=== PATIENT | female | born 1965 | race Caucasian/White ===

== ENCOUNTER → 2017-11-03 17:17 | Outpatient (CLI) | payer BC | END | disposition home or self-care (01) | LOC: D.MAMMO 13:15 | DX: Z12.31 Encounter for screening mammogram for malignant neoplasm of breast (principal) ==

== ENCOUNTER 2019-03-16 10:00 | Outpatient (CLI) | payer BC | END 2019-03-16 10:30 | disposition home or self-care (01) | LOC: D.MAMMO 10:00 | PROVIDERS: ATTEND Internal Medicine | DX: Z12.31 Encounter for screening mammogram for malignant neoplasm of breast (principal) ==

== ENCOUNTER → 2020-04-11 07:24 | Outpatient (CLI) | payer BC | END | disposition home or self-care (01) | LOC: D.CT 04-04 08:00 | PROVIDERS: ATTEND Obstetrics & Gynecology | DX: R10.2 Pelvic and perineal pain (principal) ==

== ENCOUNTER 2020-04-26 05:15 | Day surgery (SDC) | payer BC ==
[2020-04-24 17:30] LABS: BASOPHILS 0.6 % (0-2); EOSINOPHILS 1.2 % (0-7); HEMATOCRIT 42.9 % (36.0-48.0); HEMOGLOBIN 13.9 g/dL (12-16); IMMATURE GRANULOCYTES 0.1 % (0-5); MCHC 32.4 g/dL (31.0-37.0); MCV 89.4 fL (80.0-100.0); MEAN PLATELET VOLUME 10.4 fL (7.4-10.4); MONOCYTES 7.1 % (2-11); PLATELET COUNT 264 10x3/uL (130-400); RDW 12.9 % (11.5-14.5); WBC 8.1 10x3/uL (4.8-10.8)
[2020-04-24 17:43] LABS: ANION GAP 12.3 mmol/L (8-16); CALCIUM 9.3 mg/dL (8.5-10.1); CARBON DIOXIDE 28.1 mmol/L (21.0-32.0); CREATININE - SERUM 0.9 mg/dL (0.6-1.3); POTASSIUM - SERUM 4.4 mmol/L (3.5-5.1)
[2020-04-26] VITALS (16 sets, daily range): BP systolic 83–107; BP diastolic 50–63; Ht 177.8 cm; Wt 67.1 kg
[~2020-04-26] VITALS: Ht 177.8 cm; Wt 67.1 kg
--- NOTE | ~2020-04-26 | OP ---
PATIENT NAME: DOREEN LYNN MEDICAL RECORD: [id number] :69 LOCATION:[facility] .[id number] ADMISSION DATE: SURGEON: JAXSON BALTAZAR MD DATE OF OPERATION: 04/26/2020 PREOPERATIVE DIAGNOSES: 1. Abnormal uterine bleeding. 2. Perimenopause. POSTOPERATIVE DIAGNOSES: 1. Abnormal uterine bleeding. 2. Perimenopause. PROCEDURE: Total laparoscopic hysterectomy with bilateral salpingo-oophorectomy and cystoscopy. SURGEON: Jaxson Baltazar MD STILL PHOTOGRAPHER: Mikael Jeff 2Corinne Garrison FULFILLMENT MAIL CLERK: Ramona Ramey ANESTHESIOLOGIST: Dr. Anderson ANESTHESIA: General. FINDINGS: Uterus, tubes, and ovaries were unremarkable. Vaginal mucosa is unremarkable. At the time of cystoscopy, the ureteral orifices were visualized with good efflux of urine. No evidence of trauma, unremarkable mucosa. SPECIMEN REMOVED: Uterus, tubes, and ovaries bilaterally. SPECIMEN DISPOSITION: All specimens to pathology. ESTIMATED BLOOD LOSS: Less than or equal to 75 cc. FLUIDS: 1800 cc of lactated Ringer's. URINE OUTPUT: 150 cc of clear urine. COMPLICATIONS: None. DRAIN: Alberts to gravity. INDICATIONS: The patient is a 54-year-old perimenopausal female with irregular bleeding. The patient has been counseled buy is extremely concerned of family history of ovarian and uterine cancers. The patient is consented for diagnostic laparoscopy and total laparoscopic hysterectomy with bilateral salpingo-oophorectomy and any indicated procedures. DESCRIPTION OF PROCEDURE: After informed consent was assured, the patient was taken to the operating room where anesthetic was obtained. The patient was now prepped and draped in the usual sterile fashion after being placed in [facility] OPERATIVE REPORT [id number] DOREEN LYNN [facility]. The speculum was introduced in the vagina and uterine manipulator placed. Trocars were inserted at the umbilical incision site and pneumoperitoneum was developed. Accessory ports were placed in the right and left lower quadrants. Both of these were 5-mm ports. The pelvis view with the above findings. Dissection of adnexa begins on the right. The right tube and ovary were elevated and the infundibulopelvic ligaments were compressed, coagulated, and . The dissection was carried out underneath the left ovary. Anterior leaf of the broad ligament was opened and the bladder flap was developed. The posterior leaf was opened. The vessels on the left side were skeletonized, compressed and coagulated at the level of the internal os. Attention was now directed to the left side. Left ovary and tube was elevated. Thunderbeat coagulation cutter was used to compress, coagulate, and separate the infundibulopelvic ligament. Dissection again was carried out underneath the ovary and left tube. Dissection was carried down the broad ligament and the vessels of the left side were compressed, coagulated, and . The bladder flap was further developed. To further delineate the margins of the bladder, sterile milk and normal saline mixture was placed. The bladder was distended and full margin was identified. The bladder flap was now further developed and dissection of the uterus from the vagina begins. Starting at the 9 o'clock concluding at the 3 and completing from the 3 to the 9 going clockwise, the cervix is removed from its attachments to the vagina. The uterus was now pulled into the vagina maintaining pneumoperitoneum. Pelvis was irrigated, irrigant removed. Attention was now directed to the vagina and the distention gas is turned off and the light is on standby. With the legs properly positioned, a weighted speculum was introduced and the specimen has been removed. The defect created by the hysterectomy was identified. Allis clamps were used to grab the uterosacral ligaments on the right and left sides. The cuff was now closed in an anterior and posterior fashion taking care to plicate the uterosacral ligaments and developing support for the apex. After closure was completed, cystoscopy was performed with the above findings. Pneumoperitoneum was reestablished and the pelvis again viewed. Sagar was placed over the vaginal cuff. Sponge, lap, and needle counts correct times 2. The pneumoperitoneum was released and accessory trocars were removed. All sites were closed with a subcuticular stitch. Alberts catheter was restarted. The patient was sent to the recovery area in stable condition. TRANSINT:[id number] Voice Confirmation ID: [id number] DOCUMENT ID: [id number] JAXSON BALTAZAR MD CC: [id number] DICTATION DATE: 04/26/201750 CMA OR LPN: 04/27/20 0356 [facility] [address] [place] [address]
[~2020-04-26 05:15] MED LIST: ALEVE PM PO; GLUCOPHAGE500 MG PO; METOPROLOL TART25 MG PO; [UNRECOGNIZED DRUG - OTHER] PO
[2020-04-26 06:34] LABS: HCG URINE NEGATIVE (NEGATIVE)
--- NOTE | 2020-04-26 10:16 | NUR ---
OPA OUT AT THIS TIME
--- NOTE | 2020-04-26 10:37 | NUR ---
PT RECEIVED VIA BED FROM RECOVERY. VSS. SEE POST OP VITALS. PT FREQUENTLY DROUSY BUT AROUSES WITH VERBAL STIMULATION. PT DENIES PAIN. 3 LAP INCISIONS C/D/I WITH DERMABOND. NO VAG BLEEDING, PERIPAD IN PLACE. BURGESS CATH DRAINING, URINE TO BEDSIDE DRAINAGE. FORMULA IRRIGANT NOTED IN BAG CAUSING CLOUDY APPEARANCE. STAT LOCK IN PLACE, INNER RT THIGH. SCDS ON LE BILAT. NO EDEMA NOTED. SRUP X2. CALL LIGHT IN REACH. CONTINUOUS PULSE OX IN PLACE. DAUGHTER AT BEDSIDE.
--- NOTE | 2020-04-26 12:15 | NUR ---
PT C/O PAIN RATED 4/10, REQUESTING PAIN MED. DR BALTAZAR PHONED AND STATES HE WILL ENTER ORDERS.
--- NOTE | 2020-04-26 12:40 | NUR ---
THIS RN TO ROOM WITH BELKIS HARTMANN FOR ASSISTANT BRANCH MANAGER WITH ORDERED PO MEDS. PT POSITIONED TO SITTING UP IN BED WITH HOB APPROX 60 DEGREES. PT GIVEN SIP OF WATER, STATES "I CAN'T TAKE THOSE" REFERRING TO PO MEDS, C/O FEELING NAUSEOUS. PO MEDS HELD, WILL ADMIN PRN ZOFRAN AND GET ORDER FOR IV PAIN MED.
--- NOTE | 2020-04-26 12:47 | NUR ---
PT ADMIN ZOFRAN AND DILAUDID ORDERED IV, SEE EMAR FOR DOC. SRUx2, CL IN REACH. PT DAUGHTER AT BEDSIDE.
--- NOTE | 2020-04-26 14:00 | NUR ---
THIS RN TO ROOM FOR PT CHECK. PT RESTING WITH EYES CLOSED, RESP EVEN AND UNLABORED, ALERTS TO VOICE, DENIES PAIN. PT TURNED TO RIGHT TILT, SUPPORTED WITH PILLOW. PT REMAINS WITH HOB APPROX 60 DEGREES. SRUx2, CL IN REACH. VSS, SEE FLOWSHEET. 180ML CLEAR YELLOW URINE EMPTIED FROM UROMETER. PT DAUGHTER AT BEDSIDE.
--- NOTE | 2020-04-26 15:10 | NUR ---
OUTPUT 175 MLS CLEAR YELLOW URINE. PT WAKING UP REPOSITIONED TO [place] PER REQUEST TO DRINK WATER. DENIES NAUSEA WITH DRINKING. INCISIONS REMAIN DRY AND INTACT. SCANT SPOT BROWN BLOOD NOTED ON PERIPAD. NO ACTIVE BLEEDING NOTED. SRUPX2. CALL LIGHT IN REACH. DAUGHTER AT BEDSIDE.
--- NOTE | 2020-04-26 16:31 | NUR ---
DR BALTAZAR PHONES UNIT FOR UPDATE ON PT, STATES PT WILL LIKELY STAY OVERNIGHT AND HE WILL ROUND SHORTLY TO SEE HER.
--- NOTE | 2020-04-26 17:00 | NUR ---
PT DAUGHTER UPDATED ON ORDER FROM DR BALTAZAR THAT SHE WILL LIKELY STAY OVERNIGHT. PT RESTING WITH EYES CLOSED, RESP EVEN AND UNLABORED, VSS. PT LEFT UNDISTURBED FOR REST. SRUx2, CL IN REACH.
--- NOTE | 2020-04-26 18:55 | NUR ---
THIS RN TO ROOM FOR PT CHECK. PT SITTING UP IN BED, STILL FREQUENTLY DROWSY BUT ALERTS TO VOICE MORE EASILY AND CARRIES ON CONVERSATION. PT DAUGHTER REPORTS SHE WAS ABLE TO SIP SOME WATER AND EAT LITTLE SOUP. ABD INCISIONS REMAIN C/D/I. NO FURTHER VAGINAL BLEEDING NOTED TO PERIPAD. BURGESS CATH DRAINING CLEAR YELLOW URINE, APPROX 500ML EMPTIED. BURGESS BAG EMPTIED FOR END OF SHIFT. PT DENIES PAIN, STATES SHE WANTS TO REPOSITION. THIS RN AND PT DAUGHTER REPOSITION PT UP TO HOB AND HOB UP TO APPROX 45 DEGREES, REPOSITIONED TO LEFT TILT AND SUPPORTED WITH PILLOWS. PT DENIES NEEDS. IV INFUSING ORDERD. SRUx2, CL IN REACH.
--- NOTE | 2020-04-26 19:00 | NUR ---
REPORT TO PM SHIFT.
--- NOTE | 2020-04-26 19:47 | NUR ---
PATIENT LYING IN BED WITH EYES CLOSED. DAUGHTER AT BEDSIDE. PATIENT VERY DROWSY. WILL AROUSE AFTER NAME BEING CALLED AND GENTL TOUCHING SHOULDER. PATIENT ALERT TO PERSON AND PLACE, BUT WILL FALL ASLEEP WHILE TALKING. VITAL SIGNS DONE. ASSESSMENT COMPLETE. DENIES PAIN AT THIS TIME. 3 LAPROSCOPIC INCISIONS NOTED TO ABDOMEN. NO REDNESS OR EDEMA NOTED TO INCISION. BURGESS CATHETER INTACT AND DRAINING CLEAR YELLOW URINE TO GRAVITY. IV TO L WRIST INFUSING LR @ 150 ML/HR. BED IN LOWEST POSITION, SIDE RAILS UP X 2, C/L AND WATER WITHIN REACH.
--- NOTE | 2020-04-26 21:00 | NUR ---
PATIENT LYING QUIETLY IN BED WITH EYES CLOSED. VERY DROWSY. WILL RESPOND TO VERBAL STIMULI, BUT CONTINUES TO FALL ASLEEP WHILE TALKING. DAUGHTER AT BEDSIDE. PATIENT DENIES ANY PAIN OR NEEDS AT THIS TIME. BED IN LOWEST POSITION, SIDE RAILS UP X 2, C/L AND WATER WITHIN REACH.
--- NOTE | 2020-04-26 22:32 | NUR ---
PATIENT SITTING UP IN BED. STILL DROWSY, BUT SITTING UP AND TALKING. GRAHM CRACKERS AND ICE GIVEN PER PATIENT REQUEST. VITAL SIGNS DONE. PATIENT DENIES FURTHER NEEDS. DAUGHTER AT BEDSIDE. BED IN LOWEST POSITION, SIDE RAILS UP X 2, C/L AND WATER WITHIN REACH.
--- NOTE | 2020-04-27 00:03 | NUR ---
PATIENT SITTING UP IN BED. STATES PAIN 5 OUT OF 10. PATIENT TOLERATED GRAHM CRACKERS. DENIES FEELING NAUSEATED. DILAUDID 2MG ADMINISTERED PO. WILL CONTINUE TO MONITOR. DAUGHTER AT BEDSIDE. BED IN LOWEST POSITION, SIDE RAILS UP X 2, C/L AND WATER WITHIN REACH.
--- NOTE | 2020-04-27 01:00 | NUR ---
PATIENT LYING IN BED WITH EYES CLOSED. AROUSES TO VERBAL STIMULI. DENIES PAIN OR NEEDS AT THIS TIME. BED IN LOWEST POSITION, SIDE RAILS UP X 2, C/L AND WATER WITHIN REACH.
--- NOTE | 2020-04-27 01:52 | NUR ---
PATIENT LYING IN BED WITH EYES CLOSED. EASILY AROUSED. REGLAN 10 MG ADMINISTERED PO. PATIENT DENIES PAIN OR ANY NEEDS AT THIS TIME. BED IN LOWEST POSITION, SIDE RAILS UP X 2, C/L AND WATER WITHIN REACH.
[2020-04-27 02:43] VITALS: BP 98/53
--- NOTE | 2020-04-27 02:43 | NUR ---
PATIENT LYING IN BED WITH EYES CLOSED. EASILY AROUSED. DENIES PAIN AT THIS TIME. VITAL SIGNS DONE. BED IN LOWEST POSITION, SIDE RAILS UP X 2, C/L AND WATER WITHIN REACH.
--- NOTE | 2020-04-27 03:02 | NUR ---
PATIENT AMBULATING IN ROOM. DENIES PAIN OR NEEDS AT THIS TIME. VITAL SIGNS DONE. BED IN LOWEST POSITION, SIDE RAILS UP X 2, C/L AND WATER WITHIN REACH.
--- NOTE | 2020-04-27 04:08 | NUR ---
PATIENT SITTING UP IN BED. STATES PAIN 8 OUT OF 10. DILAUDID 2MG ADMINISTERED PO. MOTRIN 800MG ADMINISTERED PO. PATIENT DENIES ANY FURTHER NEEDS. BED IN LOWEST POSITION, SIDE RAILS UP X 2, C/L AND WATER WITHIN REACH.
--- NOTE | 2020-04-27 04:30 | NUR ---
PATIENT SITTING UP IN BED. EMPTIED 1300 ML'S OF CLEAR YELLOW URINE FROM CATHETER BAG. 16 FR BURGESS CATHETER REMOVED AFTER DEFLATING 10 CC'S OF STERILE WATER FROM BALLOON. BIRD CARE GIVEN AND PADS CHANGED. UNDERWEAR APPLIED. PATIENT TOLERATED WELL. SCD'S REMOVED AT THIS TIME PER REQUEST OF PATIENT. IV SALINE LOCKED. ICE CHIPS GIVEN TO PATIENT. PATIENT DENIES ANY FURTHER NEEDS. BED IN LOWEST POSITION, SIDE RAILS UP X 2, C/L AND WATER WITHIN REACH.
--- NOTE | 2020-04-27 05:45 | NUR ---
PATIENT LYING IN BED WITH EYES CLOSED. EASILY AROUSED. DENIES PAIN. PATIENT AMBULATED TO BATHROOM WITH STEADY GAIT WITH ASSIST. VOIDED 200 CC'S OF CLEAR YELLOW URINE WITHOUT DIFFICULTY. DENIES ANY DIZZINES. PATIENT AMBULATED BACK TO BED WITH STEAY GAIT. ONCE BACK IN BED VITAL SIGNS DONE. BP 81/44, HR 90, RR 18, OXYGEN SATURATION 93% ON ROOM AIR. PATIENT DENIES DIZZINESS. SET BP TO BE CHECKED EVERY 15 MINUTES. WILL CONTINUE TO MONITOR. PATIENT DENIES ANY FURTHER NEEDS. BED IN LOWEST POSITION, SIDE RAILS UP X 2, C/L AND WATER WITHIN REACH.
[2020-04-27 05:51] VITALS: BP 81/44
[2020-04-27 06:06] VITALS: BP 89/51
[2020-04-27 06:21] VITALS: BP 96/55
[2020-04-27 06:36] VITALS: BP 97/57
[2020-04-27 08:30] VITALS: BP 91/48
--- NOTE | 2020-04-27 08:30 | NUR ---
PT IS AWAKE AND ALERT X 3, RATES PAIN AT 5/10 AND ASKING FOR PAIN MED. ABD SOFT TO TOUCH, DENIES PAIN WITH VOIDS. REINFORCED TEACHING ABOUT INCENTIVE SPRIOMETER AND PT DOES DEMONSTRATE UNDERSTANDING. SHE IS ABLE TO COUGH BUT VERY WEAK EFFORT, SHOWN USE OF PILLOW TO ABDOMEN TO AID WITH PAIN CONTROL. COMPLETE ASSESSMENT CHARTED TO FLOWSHEET. SIDE RAILS UP X 2 WITH PHONE AND CALL LIGHT IN REACH.
--- NOTE | 2020-04-27 08:45 | NUR ---
DILAUDID 2MG GIVEN PO SCANNED TO EMAR. LARGE CUP OF ICE WATER REQUESTED.
--- NOTE | 2020-04-27 09:30 | NUR ---
RATES PAIN AT 2/10. SMALL CUP OF ICE REQUESTED. SPOUSE AT BEDSIDE, CALL LIGHT IN REACH.
[2020-04-27] MEDS ORDERED: ESTRACE1 MG PO (09:53)
[2020-04-27] MEDS ORDERED: NEURONTIN 300300 MG PO (09:53)
[2020-04-27] MEDS ORDERED: IBUPROFEN800 MG PO (09:54)
[2020-04-27] MEDS ORDERED: DILAUDID2 MG PO (09:54)
--- NOTE | 2020-04-27 10:15 | NUR ---
SALINE LOCK REMOVED INTACT FROM LEFT WRIST. VERBAL AND WRITTEN D/C INSTRUCTIONS GONE OVER WITH PT AND SHE VERBALIZES HER UNDERSTANDING OF SCRIPTS RECEIVED ALONG WITH S/S OF INFECTION. SHE DENIES QUESTIONS OR CONCERNS ABOUT DISCHARGE.
--- NOTE | 2020-04-27 10:30 | NUR ---
TAKEN OUT BY WHEELCHAIR, HOME BY PRIVATE CAR WITH SPOUSE.
== END 2020-04-27 10:30 | disposition home or self-care (01) ==
LOC: D.OPS 05:15 → D.PAN 07:00 → D.LD 10:24 → D.OPS 04-27 10:30
PROVIDERS: ATTEND Obstetrics & Gynecology
DX: N93.9 Abnormal uterine and vaginal bleeding, unspecified (principal); N95.0 Postmenopausal bleeding